=== PATIENT | female | born 1960 | race Caucasian/White ===

== ENCOUNTER → 2025-03-27 14:37 | Outpatient (REF) | payer MEDICARE, OTHER, SELFPAY | LOC: RAD 14:37 | PROVIDERS: ATTENDING PHYSICIAN Obstetrics & Gynecology Female Pelvic Medicine and Reconstructive Surgery; FAMILY PHYSICIAN Internal Medicine | DX: N81.6 Rectocele (principal) | CPT/HCPCS: 93005 ==